=== PATIENT | female | born 1975 | race Two or more races ===

== ENCOUNTER 2019-05-23 14:31 | Emergency (ER) | payer SELFPAY ==
[~2019-05-23] VITALS: Ht 152.4 cm; Wt 90.0 kg
[2019-05-23 15:06] VITALS: BP 141/112
[2019-05-23] MEDS ORDERED: FAMO-63 PO (15:10)
[2019-05-23] MEDS ORDERED: DIPH25CA58 PO (15:10)
[2019-05-23] MEDS ORDERED: PRED20TA PO (15:10)
--- NOTE | 2019-05-23 15:11 | PHYS DOC ---
Past Medical History Past Medical History: No Pertinent History Additional Past Medical Histor: Gestational Diabetes. Past Surgical History: No Surgical History Smoking Status: Never Smoker Alcohol Use: None Drug Use: None Adult General Chief Complaint Chief Complaint: ALLERGIC REACTION HPI HPI Patient is a 43 year old female who presents with patient states Sunday she began having a red itchy rash on her face and on her neck. She states that she took Benadryl on Sunday. She states that the rash has not gotten any worse but has not gotten better. Patient denies using any new soaps, lotions, detergents, make-up, perfumes, eating different foods, no new medicines. Patient denies throat tightness, shortness of breath, chest pain, itching in her throat or mouth, cough, fever, headache, dizziness, LOC. Review of Systems Review of Systems Integument: rash or skin lesions [] All other systems were reviewed and found to be within normal limits, except as documented in this note. Current Medications Current Medications Current Medications Medications (Trade) Dose Ordered Sig/Balwinder Start Time Stop Time Status Last Admin Dose Admin Diphenhydramine HCl (Benadryl) 25 mg 1X ONCE 05/23/19 15:15 05/23/19 15:16 DC 05/23/19 15:13 25 MG Famotidine (Pepcid) 20 mg 1X ONCE 05/23/19 15:15 05/23/19 15:16 DC 05/23/19 15:13 20 MG Prednisone (Prednisone) 50 mg 1X ONCE 05/23/19 15:15 05/23/19 15:16 DC 05/23/19 15:12 50 MG Allergies Allergies Allergies Coded Allergies Type Severity Reaction Last Updated Verified No Known Drug Allergies 06/13/13 No Physical Exam Physical Exam Constitutional: Well developed, well nourished, no acute distress, non-toxic appearance. [] HENT: Normocephalic, atraumatic, bilateral external ears normal, oropharynx moist, no oral exudates, nose normal. [] Eyes: PERRLA, EOMI, conjunctiva normal, no discharge. [] Neck: Normal range of motion, no tenderness, supple, no stridor. [] Cardiovascular:Heart rate regular rhythm, no murmur [] Lungs & Thorax: Bilateral breath sounds clear to auscultation [] Abdomen: Bowel sounds normal, soft, no tenderness, no masses, no pulsatile masses. [] Skin: Warm, dry, no erythema, facial rash rash. [] Back: No tenderness, no CVA tenderness. [] Extremities: No tenderness, no cyanosis, no clubbing, ROM intact, no edema. [] Neurologic: Alert and oriented X 3, normal motor function, normal sensory function, no focal deficits noted. [] Psychologic: Affect normal, judgement normal, mood normal. [] Current Patient Data Vital Signs Vital Signs Date Time Temp Pulse Resp B/P (MAP) Pulse Ox O2 Delivery O2 Flow Rate FiO2 05/23/19 15:06 97.9 94 20 141/112 (122) 98 Room Air 97.9 EKG EKG [] Radiology/Procedures Radiology/Procedures [] Course & Med Decision Making Course & Med Decision Making Pertinent Labs and Imaging studies reviewed. (See chart for details) Lungs are clear to auscultation all lobes. Patient states her face is very itchy. There is no facial swelling, throat swelling or uvula swelling or tongue swelling. No hives in the mouth. Patient has a reddened hive-like rash to her face that extends down to her throat. Throat is pink without exudates or swelling. Patient speaks in full clear sentences. Vital signs within normal limits. Patient is given Benadryl, prednisone, Pepcid in the ED. Patient states she is feeling better. Patient discharged home with Benadryl, prednisone and Pepcid. [] Dragon Disclaimer Dragon Disclaimer This electronic medical record was generated, in whole or in part, using a voice recognition dictation system. Departure Departure Impression: Primary Impression: Rash Disposition: 01 HOME, SELF-CARE Condition: STABLE Referrals: NO PCP (PCP) Patient Instructions: Hives Additional Instructions: Follow-up with primary care provider if needed. Take medications as prescribed. Drink plenty of fluids. If your throat begins to feel tight or you begin having facial swelling especially your lips or your tongue or in your throat you need to return to the emergency room immediately. Scripts Diphenhydramine Hcl (BENADRYL) 25 Mg Capsule 25 MG PO Q8H for 7 Days, #21 CAP Prov: OLIVER THOMSON [employer]ARDRO[employer] TECHNICIAN 05/23/19 Famotidine (PEPCID) 20 Mg Tablet 20 MG PO BID, #14 TAB Prov: OLIVER THOMSON APRN 05/23/19 Prednisone (PREDNISONE) 20 Mg Tablet 2 TAB PO DAILY, #5 TAB Prov: OLIVER THOMSON APRN 05/23/19 OLIVER THOMSON APRN May 23, 2019 15:11
[2019-05-23] MEDS ORDERED: predniSONE 10 MG TABLET PO ONE (15:15)
[2019-05-23] MEDS ORDERED: diphenhydrAMINE HCL 25 MG CAPSULE PO ONE (15:15)
[2019-05-23] MEDS ORDERED: FAMOTIDINE 20 MG TABLET. PO ONE (15:15)
== END 2019-05-23 15:41 | disposition home or self-care (01) ==
LOC: ER 14:31
DX: R21 Rash and other nonspecific skin eruption (principal)
CPT/HCPCS: 99284; J7512; Q0163